=== PATIENT | male | born 1945 | race Caucasian/White ===

== ENCOUNTER 2017-08-03 01:35 | Observation (INO) | payer BC, OTHER ==
[~2017-08-03] VITALS: Ht 188 cm; Wt 76.1 kg
[2017-08-03] MEDS ORDERED: ASPIRIN 324 MG CHEW PO STA (01:59)
[2017-08-03 02:14] LABS: BASO % 0.2 %; BASO ABS # 0.01 K/uL (0-0.2); COMPLETE YES; EOS % 5.1 %; IG% 0.2 %; LYMPH ABS # 1.81 K/uL (1.2-3.4); MEAN CELL VOLUME 86.5 fL (80-100); MEAN CORPUSCULAR HEMOGLOBIN 29.8 pg (25-34); MEAN CORPUSCULAR HGB CONC 34.4 g/dl (32-36); MEAN PLATELET VOLUME 9.8 fL (7.4-10.4); MONO % 8.1 %; NEUT % 52.4 %; PLATELET COUNT 169 K/uL (130-400); RED BLOOD COUNT 4.16 M/uL (4.7-6.1); WHITE BLOOD COUNT 5.32 K/uL (4.8-10.8)
[2017-08-03 02:34] LABS: BUN/CREATININE RATIO 11.1 (10-20); CALCIUM 8.9 mg/dl (8.5-10.1); CREATININE 0.78 mg/dl (0.60-1.40)
[2017-08-03] MEDS ORDERED: ASPI81TA28 PO (02:35)
[2017-08-03] MEDS ORDERED: ATOR-24 PO (02:35)
[2017-08-03] MEDS ORDERED: MAGN200T6 PO (02:35)
[2017-08-03] MEDS ORDERED: METO25TA3 PO (02:35)
[2017-08-03] MEDS ORDERED: MULT-506 PO (02:35)
[2017-08-03 02:39] LABS: ALB/GLOB RATIO 1.3 (0.9-2); CKMB/CK RATIO 1.8 (0-3.0)
[2017-08-03] MEDS ORDERED: MoRPHine SULFATE 2 MG/ML CARP IV PRN (03:30)
[2017-08-03] MEDS ORDERED: ALUMINUM/MAGNESIUM/SIMETH (MAALOX MAX) 30 ML UDC PO PRN (03:30)
[2017-08-03] MEDS ORDERED: POLYETHYLENE (MIRALAX) 17 GM PACK PO PRN (03:30)
[2017-08-03] MEDS ORDERED: MAGNESIUM HYDROXIDE SUSP 30 ML UDC PO PRN (03:30)
[2017-08-03] MEDS ORDERED: ACETAMINOPHEN 325 MG TAB PO PRN (03:30)
[2017-08-03] MEDS ORDERED: ONDANSETRON INJ 2 MG/ML 2 ML VIAL IV PRN (03:30)
[2017-08-03] MEDS ORDERED: NITROGLYCERIN 0.4 MG SL PER TAB CHARGE SL PRN (03:30)
[2017-08-03 04:05] VITALS: BP 157/71; PULSE 53; TEMP 36.6; O2SAT 97; Ht 188 cm; Wt 76.1 kg
--- NOTE | 2017-08-03 04:17 | History and Physical ---
History & Physical Date of Service Aug 03, 2017. History & Physical Please see dictated report for full H&P HISTORY: 72 YO male from [place] with history of stable angina and RBBB, who presents with sudden onset chest pain, 5/10 pressure across the chest, no radiation, a/w diaphoresis. Did not get relief with nitro x 3 and Tums x 2. Came to ED after 30 minutes of pain. Pain resolved 1 hour from onset. Patient has hx of angina, with walking up hills. Usually resolves with 1 minute of rest, without nitro. Also has known history of RBBB. States normal nuclear stress test 1 year ago. Also had holter showing 10 minutes of Afib, but is not on anticoagulation. Never had cath or echo. 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 Takes ASA, Atorvastatin and Metoprolol. Metoprolol started 6 months ago and since then he has not had any angina until tonight. EXAM: VSS, no abnormalities on examination LABS/INVESTIGATIONS - CBC: normal WBC, Hb 12.9 (unknown baseline) - Lytes/Renal: Na 135, otherwise normal - TnI < 0.03 - EKG: RBBB, no acute ST or T wave changes - CXR: no gross abnormalities, final report pending ASSESSMENT/PLAN - Chest pain with hx angina: Cardiac enzymes q6h, telemetry monitoring, EKG in AM and with chest pain, Obtain old records, Cardiology consultation for recs on whether additional stress testing required. Echo can be ordered if trops come back positive - Continue ASA, Atorvastatin, Metoprolol - SCD, TEDs, Lovenox - Level I - Obs Telemetry
--- NOTE | 2017-08-03 04:30 | EMERGENCY ROOM VISIT NOTE ---
History First contact with patient: 01:49 Chief Complaint: CARDIAC ASSESSMENT Stated Complaint: CHEST PAIN, UNSTABLE ANGINA Nursing Triage Summary: c/o pain across chest since 0030 rated as a 5/10 with diaphoresis. pt took 3 nitro at home and now rates pain 1/10. hx angina. pt also reports that he has had a cold for past week with cough for 2 days with green sputum. History of Present Illness The patient is a 72 year old male who presents to the Emergency Room with complaints of chest pain. The patient states that he woke up approximately one hour ago and walked to the bathroom. He states that he developed pain across his chest consistent with previous episodes of angina. He states the pain was more severe than previous episodes of angina. He took 3 nitroglycerin without relief and decided to come here. The patient states that when his pain initially started, it was a 5/10 and was associated with some diaphoresis. His pain is improved and is a 1/10 at this time. He denies any radiation of the pain into his arm or jaw or associated shortness of breath. The patient does state that he has a history of angina diagnosed by his corporate paralegal several months ago. He states that typically when he exerts himself, he will develop some mild chest pain which resolves with rest. The patient is from [place] and has a corporate paralegal there. He has had a negative stress test in the past. He has not had a heart catheterization. He states he was started on a beta jacqui and a statin in April. He does report a history of a right bundle-branch block. He denies any history of CT. He is not a smoker. The patient does report he has had some chest congestion/cough for the past week. Review of Systems A complete 10 point review of systems was reviewed with the patient with pertinent positives and negatives as per history of present illness. All else were negative. Past Medical/Surgical History Medical Problems: (1) Chest pain (2) Unstable angina Social History Smoking Status: Never Smoker Current/Historical Medications Scheduled Aspirin (Aspirin Ec), 81 MG PO DAILY Atorvastatin (Lipitor), 40 MG PO DAILY Magnesium Citrate (mg Suppleme (Magnesium Citrate), 200 MG PO DAILY Metoprolol Succinate (Toprol Xl), 12.5 MG PO DAILY Multivitamin (Multivitamin), 1 TAB PO DAILY Physical Exam Vital Signs Date Time Temp Pulse Resp B/P (MAP) Pulse Ox O2 Delivery O2 Flow Rate FiO2 08/03/17 03:26 61 20 141/73 97 Room Air 08/03/17 02:20 55 12 122/66 98 Room Air 08/03/17 01:56 54 08/03/17 01:47 97 Room Air 08/03/17 01:39 36.5 55 18 142/70 97 Room Air Physical Exam VITALS: Vitals are noted on the nurse's note and reviewed by myself. Vital signs stable. GENERAL: This is a 72-year-old male, in no acute distress, nondiaphoretic, well- developed well-nourished. SKIN: Capillary reflex less than 2 seconds. HEENT: Normocephalic. PERRLA. Tympanic membranes pearly esquivel bilaterally. Mucous membranes moist. Neck is supple without nuchal rigidity. HEART: Regular rate and rhythm without murmurs gallops or rubs. LUNGS: Clear to auscultation bilaterally without wheezes, rales or rhonchi. No retractions or accessory muscle use. NEURO: Patient was alert and oriented to person place and time. Medical Decision & Procedures ER Provider Diagnostic Interpretation: CHEST: No consolidation. No cardiomegaly. Laboratory Results 08/03/17 01:55 Red Blood Count 4.16, Mean Corpuscular Volume 86.5, Mean Corpuscular Hemoglobin 29.8, Mean Corpuscular Hemoglobin Concent 34.4, Mean Platelet Volume 9.8, Neutrophils (%) (Auto) 52.4, Lymphocytes (%) (Auto) 34.0, Monocytes (%) (Auto) 8.1, Eosinophils (%) (Auto) 5.1, Basophils (%) (Auto) 0.2, Neutrophils # (Auto) 2.79, Lymphocytes # (Auto) 1.81, Monocytes # (Auto) 0.43, Eosinophils # (Auto) 0.27, Basophils # (Auto) 0.01 08/03/17 01:55 Test 08/03/17 01:55 08/03/17 02:06 White Blood Count 5.32 K/uL (4.8-10.8) Red Blood Count 4.16 M/uL (4.7-6.1) Hemoglobin 12.4 g/dL (14.0-18.0) Hematocrit 36.0 % (42-52) Mean Corpuscular Volume 86.5 fL (80-100) Mean Corpuscular Hemoglobin 29.8 pg (25-34) Mean Corpuscular Hemoglobin Concent 34.4 g/dl (32-36) Platelet Count 169 K/uL (130-400) Mean Platelet Volume 9.8 fL (7.4-10.4) Neutrophils (%) (Auto) 52.4 % Lymphocytes (%) (Auto) 34.0 % Monocytes (%) (Auto) 8.1 % Eosinophils (%) (Auto) 5.1 % Basophils (%) (Auto) 0.2 % Neutrophils # (Auto) 2.79 K/uL (1.4-6.5) Lymphocytes # (Auto) 1.81 K/uL (1.2-3.4) Monocytes # (Auto) 0.43 K/uL (0.11-0.59) Eosinophils # (Auto) 0.27 K/uL (0-0.5) Basophils # (Auto) 0.01 K/uL (0-0.2) RDW Standard Deviation 41.9 fL (36.4-46.3) RDW Coefficient of Variation 13.1 % (11.5-14.5) Immature Granulocyte % (Auto) 0.2 % Immature Granulocyte # (Auto) 0.01 K/uL (0.00-0.02) Anion Gap 8.0 mmol/L (3-11) Est Creatinine Clear Calc Drug Dose 94.6 ml/min Estimated GFR () 104.5 Estimated GFR (Non- 90.2 BUN/Creatinine Ratio 11.1 (10-20) Calcium Level 8.9 mg/dl (8.5-10.1) Total Bilirubin 0.3 mg/dl (0.2-1) Aspartate Amino Transf (AST/SGOT) 23 U/L (15-37) Alanine Aminotransferase (ALT/SGPT) 53 U/L (12-78) Alkaline Phosphatase 77 U/L (45-117) Total Creatine Kinase 78 U/L (39-308) Creatine Kinase MB 1.4 ng/ml (0.5-3.6) Creatine Kinase MB Ratio 1.8 (0-3.0) Total Protein 7.2 gm/dl (6.4-8.2) Albumin 4.0 gm/dl (3.4-5.0) Globulin 3.2 gm/dl (2.5-4.0) Albumin/Globulin Ratio 1.3 (0.9-2) Bedside Troponin I < 0.030 ng/ml (0-0.045) Medications Administered Medications (Trade) Dose Ordered Sig/Lucinda Route Start Time Stop Time Status Last Admin Dose Admin Aspirin (Aspirin Chew) 324 mg NOW STAT PO 08/03/17 01:59 08/03/17 02:00 DC 08/03/17 02:19 324 MG ECG Rate (beats per minute): 49 Rhythm: normal sinus Findings: RBBB Comparison ECG Date: no prior available ED Course The patient was evaluated as above. Labs were drawn and IV access was obtained. Patient was medicated with 324 mg ASA. Patient was reevaluated and findings were discussed. He is agreeable to admission/observation. Case was discussed with the [facility] hospitalist, Dr. Willis. They agreed to evaluate the patient for admission. Medical Decision Differential diagnosis includes acute coronary syndrome, pulmonary embolism, pneumothorax, pericarditis, myocarditis, endocarditis, anxiety, musculoskeletal pain, GERD, costochondritis, pneumonia, among others. The patient is a 72-year-old male who presents today complaining of chest pain. EKG shows a right bundle branch block which is known to the patient. There are no acute ischemic changes. Initial troponin was negative. Patient's history is concerning for unstable angina. He states that this episode was more severe than pain and has had in the past. This is the first time he had to take nitroglycerin for chest pain. I do feel that he will likely need observation/admission, at least to trend his troponin. The patient is agreeable to this. He will be evaluated by the [facility] hospitalist service. The patient was independently evaluated by Dr. Crawford, ED attending physician , who agreed with my assessment and treatment plan. Medication Reconcilliation Current Medication List: was personally reviewed by me Blood Pressure Screening Patient's blood pressure: Elevated blood pressure (will be followed by hospitalist) Impression Primary Impression: Unstable angina Departure Information Referrals No Doctor, Assigned (PCP) Patient Instructions My [facility]
--- NOTE | 2017-08-03 05:11 | HISTORY & PHYSICAL EXAMINATION ---
DATE OF ADMISSION: 08/03/2017 HISTORY OF PRESENT ILLNESS: Mr. Ben Hargrove is a pleasant 72-year-old gentleman with a past history of right bundle branch block and angina who presents to the Emergency Department after experiencing an episode of chest pain in the early hours of this morning. He states that he was sleeping and was awoken from his sleep with a 5/10 pressure type pain across his chest. The pain did not radiate to his jaw, back, or arms. He also notes that he was feeling diaphoretic at the time. He did take 3 back to back nitroglycerin sublingual tablets, but notes that this did not give him any relief. In addition, he took 2 Tums thinking it may be reflux, but this did not help. After persistence of symptoms for approximately 30 minutes, the patient's decided to come to the Emergency Room for further evaluation. The patient does state that he has a baseline of angina. States that he previously will get anginal episodes when walking uphill or walking his dog. The characteristics of his anginal pain are similar to the pain noted tonight when he came to the Emergency Room. However, back in March 2017, he was started on metoprolol and notes that since then he has had no episodes of angina up until tonight. With his usual episodes of angina, he states that he merely needs to rest for 1 minute and the pain dissipates on its own. He has never had to take nitroglycerin up until tonight. In addition to the chest pain, the patient states that he has had cold symptoms for the past approximately 1 week. He has had an intermittent dry to productive cough, and is occasionally bringing up mild green sputum. He is denying any shortness of breath, or wheezing. He denies any fevers, chills or sweats. His appetite and intake have been at baseline. Otherwise, he denies any other symptoms including nausea, vomiting, abdominal pain, diarrhea or constipation. He has been urinating normally. Denies any urinary frequency or dysuria. The patient denies any history of AK in the past. The patient has stated that he has previously been told that he has a right bundle branch block. The patient states that he had nuclear stress testing done by his supervisor electric in [place], [place] and this was apparently normal. He denies ever having had an echocardiogram. He did state that he had a Holter monitor done approximately 6 months ago which did show a cumulative 10 minutes of atrial fibrillation. However, he states that he was never put on any anticoagulation for this. He has never had a cardiac catheterization. On arrival to the Emergency Room, the patient did have an EKG which did not show any acute changes. It did show his known right bundle branch block. An initial troponin was done which was negative. A 10 point review of systems was otherwise negative unless stated above in the HPI PAST MEDICAL AND SURGICAL HISTORY: 1. Right bundle branch block. 2. Lung nodule. 3. History of retinal detachment. 4. Varicocele. 5. History of surgical hernia repair. 6. History of cataract repair. MEDICATIONS: Aspirin 81 mg p.o. daily, atorvastatin 40 mg p.o. daily, metoprolol succinate 12.5 mg p.o. daily, magnesium citrate 200 mg p.o. daily, multivitamin 1 tablet daily. ALLERGIES: AUGMENTIN (NAUSEA, VOMITING). SOCIAL HISTORY: The patient is a nonsmoker. The patient is a nondrinker. The patient lives at home with his in [place], [place]. The patient is a retired java lead engineer. The patient states that he is independent with all activities of daily living and does not require any additional assistance. FAMILY HISTORY: The patient states that his mother at 89 years old of congestive heart failure. He states his father has multiple health issues, but is not able to specifically list what they are. PHYSICAL EXAMINATION: VITAL SIGNS: Are as noted in the electronic medical records. On arrival, temperature 36.5, heart rate 55, respiration rate 18, blood pressure 142/70, 97% on room air. GENERAL: Inspection: The patient appears comfortable, not in any overt pain or distress, answers questions appropriately. NEUROLOGICAL: Alert and oriented x3, no obvious focal neurological deficits. HEAD: No trauma, normocephalic, no scalp lesions. EYES: Pupils are equal, round and reactive bilaterally, normal extraocular eye movements. ENT: TMs clear bilaterally, no sinus tenderness, pharynx normal, mucous membranes moist. NECK: Supple, no thyromegaly, no JVD, no cervical lymphadenopathy. RESPIRATORY/CHEST: Breath sounds are vesicular bilaterally with no wheezes or crackles, and no evidence of respiratory distress. CARDIOVASCULAR: S1 and S2 with no added sounds, murmurs or gallops. The patient has a bradycardic rate which is regular. ABDOMEN/GASTROINTESTINAL: Soft, nontender, and nondistended, bowel sounds are audible in all 4 quadrants, there is no flank pain, or CVA tenderness. BACK: No spinal or paraspinal tenderness. EXTREMITIES: No calf pain, no calf tenderness, no pitting edema. SKIN: There are no obvious rashes or skin lesions apparent on the patient. LABORATORY DATA AND INVESTIGATIONS: Hematology: White blood cell 5.3, hemoglobin 12.4, hematocrit 36, platelet 169. Electrolytes: Sodium 135, potassium 4.0, chloride 99, carbon dioxide 28, calcium 8.9. Renal: BUN 9, creatinine 0.78, GFR F90.2. Point of care troponin I less than 0.03. Chest x-ray: Chest x-ray was reviewed. There are no obvious radiographic abnormalities that I can appreciate. The final report is still pending. EKG: Normal sinus rhythm, ventricular rate of 49, right bundle branch block, no obvious ST or T-wave changes. ASSESSMENT: A 72-year-old male with a history of stable angina and known right bundle branch block who presents with sudden onset chest pain at rest. His problem list is as follows: 1. Chest pain. 2. History of stable angina. 3. History of right bundle branch block. PLAN: 1. With regards to his chest pain, we will trend his troponins every 6 hours x3. We will repeat an EKG in the morning. He will also have EKGs if he ever experiences chest pain. He will be monitored in telemetry. He will be given nitro sublingually p.r.n. for chest pain, and morphine if chest pain is refractory to this. The patient was given ASA 324 mg in the Emergency Room. We will continue with his usual 81 mg of aspirin daily, as well as his usual dosing of atorvastatin as well as metoprolol. 2. At this point, there is no indication to do an echocardiogram. If his troponins in fact do come back positive, this can be ordered. 3. I have placed an order to obtain old records. The patient states that he follows with Dr. Stephen Bean from [facility] in [place], [place]. The patient states that he may be able to access these records himself. 4. Cardiology will be consulted for recommendations on whether additional stress testing would be required. 5. For DVT prophylaxis, the patient will be given SCD, TEDs and Lovenox subcutaneously daily. 6. The patient states that he is a level 1 full code. His is the substitute decision maker if he could not make decisions for himself. 7. The patient will be observed in telemetry overnight pending serial cardiac enzyme monitoring. The patient is independent at home; therefore, I do not feel that occupational therapy or physical therapy consults are required. DIDI
[2017-08-03] MEDS ORDERED: IV FLUIDS COMPLETED PRN (05:15)
--- NOTE | 2017-08-03 06:38 | DIAGNOSTIC IMAGING REPORT ---
CHEST ONE VIEW PORTABLE HISTORY: 72 years-old Male chest pain acute atypical chest pain COMPARISON: None available TECHNIQUE: Portable upright AP view the chest FINDINGS: Cardiomediastinal and hilar silhouettes are within normal limits. There is atherosclerosis of the aorta. Mild biapical pleural-parenchymal scarring. Increased lucency of the lungs may reflect emphysema. No pneumothorax, pleural effusion, focal airspace consolidation or overt pulmonary edema. Ill-defined opacity of the left lung base is favored to reflect composite density artifact. Degenerative changes are seen within the shoulders and spine. IMPRESSION: No acute cardiopulmonary process. The above report was generated using voice recognition software. It may contain grammatical, syntax or spelling errors. Electronically signed by: Buck Self M.D. 08/03/2017 6:36 AM Dictated Date/Time: 08/03/2017 6:35 AM
[2017-08-03 07:49] LABS: PROTHROMBIN TIME (PATIENT) 10.3 SECONDS (9.0-12.0)
[2017-08-03 08:14] VITALS: BP 135/67; PULSE 56; TEMP 36.6; O2SAT 98
[2017-08-03] MEDS ORDERED: ENOXAPARIN 40 MG/0.4 ML SYR SC SCH (09:00)
[2017-08-03] MEDS: ATORVASTATIN 20 MG TAB PO SCH ×2 (09:00→09:03)
[2017-08-03] MEDS ORDERED: MULTIVITAMIN TAB PO SCH (09:00)
[2017-08-03] MEDS ORDERED: METOPROLOL SUCC 25MG EXT REL TAB PO SCH (09:00)
[2017-08-03] MEDS ORDERED: MAGNESIUM OXIDE 400 MG TAB PO SCH (09:00)
[2017-08-03] MEDS ORDERED: ASPIRIN 81 MG ECTAB PO SCH (09:00)
[2017-08-03 09:58] LABS: CKMB/CK RATIO 1.6 (0-3.0)
--- NOTE | 2017-08-03 11:12 | CARDIOLOGY CONSULTATION ---
DATE OF CONSULTATION: 08/03/2017 REASON FOR CONSULTATION: Chest pain. CONSULTATION REQUESTED BY: Dr. Dexter. HISTORY OF PRESENT ILLNESS: Mr. Hargrove is a very pleasant 72-year-old man with a history of reported stable angina, known right bundle branch block who presented last night in the setting of acute onset of chest pain. The patient has a history of stable angina diagnosed by his business office representative in [place]. He states he previously underwent a stress test back in January of 2016. On that test, he exercised for 8 minutes, had no significant EKG changes and had normal myocardial perfusion. He was having exertional chest pain and was started on beta jacqui with significant improvement in symptoms over the last 6 months. He has sublingual nitroglycerin at home but states he has never really had to take. He is in town visiting family and last night, woke up to use the restroom and then developed severe substernal chest pain with some associated diaphoresis. He took 3 sublingual nitroglycerins without significant benefit as a result presented to ED. Upon arrival, his pain had largely dissipated. His initial EKG showed right bundle branch block with no significant ST abnormalities and his point of care troponin was negative. Since admission, he has had no recurrent chest pain. Telemetry has been unremarkable. REVIEW OF SYSTEMS: The patient does endorse some URI symptoms with cough and nasal congestion over the last 1-2 weeks. PAST MEDICAL HISTORY: 1. Stable angina. 2. Lung nodule. 3. History of prior retinal detachment. 4. Chronic right bundle branch block. PAST SURGICAL HISTORY: History of surgical hernia repair and cataract repair. HOME MEDICATIONS: Aspirin 81, atorvastatin 40, metoprolol succinate 12.5 daily, magnesium citrate p.r.n. and multivitamin. ALLERGIES: ALLERGIC TO AUGMENTIN. SOCIAL HISTORY: The patient is a lifelong nonsmoker. He lives in [place], [place] with his . He is a retired hvac design mechanical engineer. FAMILY HISTORY: Mother with congestive heart failure. Denies any history of premature coronary disease. His father is still living at [facility]. PHYSICAL EXAMINATION: VITAL SIGNS: Temperature 36.6, pulse 50, blood pressure 135/67. He is satting 98% on room air. GENERAL: The patient appears comfortable in no acute distress. HEENT: Sclerae are anicteric. Oropharynx is clear. Mucous membranes are moist. NECK: Supple. No lymphadenopathy. LUNGS: Clear to auscultation bilaterally. HEART: Regular rate and rhythm with no murmurs, rubs or gallops. ABDOMEN: Soft, nontender, nondistended with positive bowel sounds. EXTREMITIES: Warm. He has no significant lower extremity edema. He has intact distal pulses including 2+ radial pulses bilaterally. SKIN: Shows no rashes or lesions. NEUROLOGIC: Nonfocal. PSYCHIATRIC: He is alert and appropriate. LABORATORY DATA: Hemoglobin of 12.4, platelets of 169. Sodium 135, potassium of 4.0, BUN of 9, creatinine of 0.8. LFTs within normal limits. Two troponins have been negative, less than 0.015. EKG: Initial EKG shows sinus rhythm at a ventricular rate of 49. He has a right bundle branch block with no significant ST abnormalities. IMAGING DATA: Chest x-ray showed no acute cardiopulmonary process. IMPRESSION AND PLAN: 1. Chest pain. 2. History of presumed coronary artery disease, stable angina. 3. Right bundle branch block. 4. Anemia. Mr. Hargrove is here with acute episode of chest pain last night. This is reminiscent of his prior pain for which he has been treated for presumed coronary artery disease with stable angina. His initial EKG and troponins have been unremarkable. Going forward suspicion for possible ACS event is elevated, although presentation at this time is low risk. In that setting, favor further risk stratification with exercise stress echocardiogram which we plan to complete later this afternoon. If that study is normal, I feel the patient can be safely discharged to home with further followup with his outpatient business office representative in [place]. Otherwise, no significant changes to his medications at this time. Thank you for allowing us to participate in the care of this patient. Please contact with any questions. DIDI
[2017-08-03 11:51] VITALS: BP 136/72; PULSE 59; TEMP 37; O2SAT 99
[2017-08-03] MEDS ORDERED: PERFLUTREN LIPID MICROSPHERE (DEFINITY) IV ONE (12:10)
--- NOTE | 2017-08-03 12:59 | Discharge Instructions ---
Discharge Instructions Date of Service Aug 03, 2017. Admission Reason for Admission: Chest Pain, Unstable Angina Discharge Discharge Diagnosis / Problem: Chest Pain Discharge Goals Goal(s): Decrease discomfort, Improve function, Improve disease control Activity Recommendations Activity Limitations: resume your previous activity . Instructions / Follow-Up Instructions / Follow-Up You came to [facility] due to an episode of chest pain that occurred the middle of the night, when you were not exerting yourself. We checked an EKG (electrical tracing of your heart), troponin (enzyme in your blood that measures damage to your heart muscle) and a chest xray, and they all came back normal. You were also seen by Dr. Carney from cardiology and underwent a stress test, which you passed with flying colors! Given the absence of findings on our clinical workup , your chest pain at this time was likely not a heart attack, and we feel it is safe for you to be discharged and follow up with your regular stadium manager. Of note, your EKG shows that your heart rate is on the slower side, and that you have some changes that could potentially in the future predispose you to something called heart block, where the electrical current does not conduct fully through the muscle of your heart. If you ever faint unexpectedly, feel dizzy or lightheaded, please seek medical attention, as this could be due to abnormal conduction within your heart. Otherwise, continue with your regular home medications and please follow up with your primary care provider and stadium manager, given that you do have underlying heart disease and we would like for you to be monitored closely as we are unsure as to what exactly caused this pain. Return to the ER immediately for worsening or persistent chest pain, abdominal pain, vomiting, fevers, chest pains, or difficulty breathing. Current Hospital Diet Patient's current hospital diet: Discharge Diet Recommended Diet: AHA Diet (Heart Healthy) Pending Studies Studies pending at discharge: no Medical Emergencies . Who to Call and When: Medical Emergencies: If at any time you feel your situation is an emergency, please call 911 immediately. . Non-Emergent Contact Non-Emergency issues call your: Primary Care Provider . . "Provider Documentation" section prepared by Sarwat Hill. . VTE Core Measure Inpt VTE Proph given/why not?: Enoxaparin (Lovenox)SQ
--- NOTE | 2017-08-03 13:03 | Discharge Summary ---
Discharge Summary Date of Service Aug 03, 2017. (Sarwat Hill M.D.) Discharge Summary Admission Date: Aug 03, 2017 at 03:26 Discharge Date: Aug 03, 2017 Discharge Disposition: Home Principal Diagnosis: Chest pain Problems/Secondary Diagnoses: 1) RBBB 2) Stable Angina 3) CAD Consultations: Cardiology - Dr. Carney (Sarwat Hill M.D.) Medication Reconciliation Continued Medications: Aspirin (Aspirin Ec) 81 Mg Tab 81 MG PO DAILY Atorvastatin (Lipitor) 40 Mg Tab 40 MG PO DAILY, TAB Magnesium Citrate (mg Suppleme (Magnesium Citrate) 200 Mg Tab 200 MG PO DAILY Metoprolol Succinate (Toprol Xl) 25 Mg Tabcr 12.5 MG PO DAILY, #30 TAB Multivitamin (Multivitamin) Tab 1 TAB PO DAILY, TAB Discharge Exam Mr. Hargrove reports he feels well today. He denies any further episodes of chest pain after he came into the emergency department, and denies SOB, palpitations, n/v, and diaphoresis. He does state he has been unwell the past few days, with a sore throat, cough productive of green sputum (no blood), and generally feeling unwell. Review of Systems: Constitutional: No fever, No chills, No sweats Respiratory: + cough, + sputum, No wheezing, No shortness of breath Cardiovascular: No chest pain, No orthopnea, No PND, No edema Abdomen: No pain, No nausea, No vomiting Physical Exam: General Appearance: WD/WN, no apparent distress Neck: no JVD Respiratory/Chest: chest non-tender, lungs clear, normal breath sounds, no respiratory distress, no accessory muscle use Cardiovascular: regular rate, rhythm, no edema, no gallop, no JVD, no murmur , normal peripheral pulses Abdomen / GI: normal bowel sounds, non tender, soft, no organomegaly, no pulsatile mass Extremities: no calf tenderness, normal capillary refill, no pedal edema (Sarwat Hill M.D.) Hospital Course Mr. Hargrove is a 72 year old gentleman with a background history of stable angina and a RBBB who was admitted to [facility] as a chest pain rule out. His EKG, troponin and CXR were negative. He was seen by Dr. Carney from cardiology and underwent a stress test, which he passed. Given the absence of findings on labwork, we will be discharging him and recommending close follow up with his PCP and hourly sign language interpreter given an exact cause was not determined for his chest pain. As well, his EKG shows findings that could be concerning for a left anterior hemiblock. We counselled him on watching out for symptoms of heart block, and recommend he seek medical attention if any of those symptoms occur. Total Time Spent: Less than 30 minutes This includes examination of the patient, discharge planning, medication reconciliation, and communication with other providers. (Sarwat Hill M.D.) Resident Physician Supervision Note: I interviewed and examined the patient. Discussed with Dr. Hill and agree with findings and plan as documented in the note. Any exceptions or clarifications are listed here: None Documented By: Ulises Dexter seen during echo portion of stress test. conferred w cardiology - input appreciated. vitals noted nad breathing unlabored no pallor or icterus stress was negative for ischemia chest pain - cardiac enzymes negative despite presumably ~1.5hrs chest pain, stress echo negative. suspect noncardiac given the low level of exertion at which he experiences these sx in the face of negative testing stable for home - f/u PCP and primary hourly sign language interpreter (Ulises Dexter, D.O.) Discharge Instructions Please refer to the electronic Patient Visit Report (Discharge Instructions) for additional information. (Sarwat Hill M.D.)
[2017-08-03 13:59] VITALS: BP 136/72; PULSE 59; TEMP 37; O2SAT 99
--- NOTE | 2017-08-03 16:42 | EXERCISE STRESS ECHO ---
*NOTICE TO RECEIVING LIBERTARIAN AGENCY This information is strictly Confidential and protected under [place] law. [place] law prohibits you from making any further disclosure of this information unless further disclosure is expressly permitted by the written consent of the person to whom it pertains or is authorized by law. A general authorization for the release of medical or other information is not sufficient for this purpose. Hospital accepts no responsibility if the information is made available to any other person, INCLUDING THE PATIENT. Interpretation Summary * Name: RENAE HALL Study Date: 08/03/2017 10:51 AM BP: 142/72 mmHg * Patient Location: C.2T\S\S230\S\2 HR: 49 * : 1945 (M/d/yyyy) Gender: Male Height: 74 in * Age: 72 yrs Ethnicity: CA Weight: 167 lb * Ordering Physician: Anand Carney * Referring Physician: Self, Referred * Performed By: Rubina Dickey RDCS * * Reason For Study: CHEST PAIN * BSA: 2.0 m2 * -- Conclusions -- * 1. Non-diagnostic exercise stress echo due to inability to reach target heart rate. * 2. Normal echocardiographic response to exercise at 78% MPHR. * 3. Negative stress ECG for ischemia at 78% MPHR. * 4. Above average functional capacity. Exercised 7:20 min, achieved 9.0 METS. * 5. Exercise induced back pain but no joaquin chest pain. Normal hemodynamic response to exercise. * 6. Normal resting LV size and function. LVEF 55-60%. Normal RV size and funciton. No significant valvular pathology. Procedure Details * ECHOEX, CPT #99115 * A contrast injection of Definity was performed to improve assessment of LV function. * Contrast was injected into an intravenous site in the right arm. * One vial of Definity ultrasound contrast was diluted in normal saline to a total volume of 10 ml. A total of '4' ml of solution was administered during imaging. * Lot # [id number] of Definity utilized for procedure. * Expiration date AUG 24. * The attending nurse who injected the contrast agent was DURAN NG RN. Left Ventricular Findings with Stress * This was essentially a normal study. Left Ventricle * The left ventricle is grossly normal size. * There is normal left ventricular wall thickness. * Ejection Fraction = 55-60%. * The left ventricular ejection fraction increases normally with stress. The left ventricular end-systolic cavity size reduces post-stress (normal response). The left ventricular wall motion with stress is normal. * Septal motion is consistent with conduction abnormality. Right Ventricle * The right ventricle is grossly normal size. * The right ventricular systolic function is normal as assessed by tricuspid annular plane systolic excursion (TAPSE) (normal >1.5 cm). Atria * The left atrial size is normal. * Right atrial size is normal. * No ASD detected; PFO is not assessed. Mitral Valve * The mitral valve is grossly normal. * Mitral stenosis is absent. * There is trace mitral regurgitation. Tricuspid Valve * There is trace tricuspid regurgitation. Aortic Valve * The aortic valve opens well. * The aortic valve is trileaflet. * No hemodynamically significant valvular aortic stenosis. Pulmonic Valve * The pulmonary valve is inadequately visualized, but the Doppler data is adequate for interpretation. * There is no significant pulmonary regurgitation. Great Vessels * The aortic root and proximal ascending aorta are normal sized. Pericardium * There is no pericardial effusion. Stress Parameters * Sinus bradycardia with RBBB * Stress ECG: No ST changes. No arrhythmias. * Arrhythmia noted in recovery: occasional PVC's. * Rest heart rate was '49' BPM. * Rest blood pressure was '142/72' * Maximum heart rate achieved was 116 bpm. * Maximum heart rate was 78 % of maximum age-predicted heart rate. * Maximum blood pressure was '175/66' * Total exercise time was '7:20' * Maximum exercise MET level achieved was '9.00' METS * Maximum treadmill speed was '3.40' miles per hour. * Maximum treadmill elevation was '14.00'% grade. * Exercise was terminated due to 'FATIGUE, CHEST/BACK PAIN' Left Ventricular Findings with Stress * The study was technically good with many images being of high quality. MMode 2D Measurements and Calculations IVSd 1.1 cm IVSs 1.7 cm LVIDd 4.9 cm LVIDs 3.5 cm LVPWd 0.92 cm LVPWs 1.4 cm IVS/LVPW 1.1 FS 28.2 % EDV(Teich) 112.4 ml ESV(Teich) 51.4 ml EF(Teich) 54.3 % EDV(cubed) 117.1 ml ESV(cubed) 43.4 ml EF(cubed) 62.9 % % IVS thick 59.0 % % LVPW thick 51.8 % LV mass(C)d 172.5 grams LV mass(C)dI 85.7 grams/m\S\2 LV mass(C)s 202.2 grams LV mass(C)sI 100.5 grams/m\S\2 SV(Teich) 61.0 ml SI(Teich) 30.3 ml/m\S\2 SV(cubed) 73.7 ml SI(cubed) 36.6 ml/m\S\2 Ao root diam 3.9 cm Ao root area 12.1 cm\S\2 LA dimension 3.6 cm LA/Ao 0.93 LVAd ap4 36.5 cm\S\2 LVLd ap4 9.2 cm EDV(MOD-sp4) 120.1 ml EDV(sp4-el) 122.9 ml LVAs ap4 21.5 cm\S\2 LVLs ap4 8.0 cm ESV(MOD-sp4) 49.9 ml ESV(sp4-el) 49.3 ml EF(MOD-sp4) 58.4 % EF(sp4-el) 59.9 % LVAd ap2 30.8 cm\S\2 LVLd ap2 9.1 cm EDV(MOD-sp2) 91.2 ml EDV(sp2-el) 88.5 ml LVAs ap2 18.7 cm\S\2 LVLs ap2 8.0 cm ESV(MOD-sp2) 38.2 ml ESV(sp2-el) 37.2 ml EF(MOD-sp2) 58.1 % EF(sp2-el) 58.0 % LVLd %diff -0.80 % EDV(MOD-bp) 104.7 ml LVLs %diff -0.21 % ESV(MOD-bp) 43.6 ml EF(MOD-bp) 58.3 % SV(MOD-sp4) 70.2 ml SI(MOD-sp4) 34.9 ml/m\S\2 SV(MOD-sp2) 53.0 ml SI(MOD-sp2) 26.3 ml/m\S\2 SV(MOD-bp) 61.1 ml SI(MOD-bp) 30.3 ml/m\S\2 SV(sp4-el) 73.6 ml SI(sp4-el) 36.6 ml/m\S\2 SV(sp2-el) 51.3 ml SI(sp2-el) 25.5 ml/m\S\2 Doppler Measurements and Calculations MV E max beny 58.6 cm/sec MV A max beny 40.8 cm/sec MV E/A 1.4 MV dec time 0.40 sec Ao V2 max 120.5 cm/sec Ao max PG 5.8 mmHg Ao max PG (full) 2.7 mmHg LV V1 max PG 3.1 mmHg LV V1 max 87.8 cm/sec
--- NOTE | 2017-08-03 20:06 | Medical Student: [facility] ---
Med Student Progress Note Date of Service Aug 03, 2017. Subjective Pt evaluation today including: conversation w/ patient, physical exam Pain: None Voiding: no voiding problems Mr. Hargrove is a 72-year-old man with a history of RBBB and angina who presented to the ED with chest pain. He says this all began when he woke in the middle of the night to use the restroom. He describes the pain as a non-radiating chest "ache and discomfort" with associated shortness of breath and diaphoresis. He took 3 nitroglycerin tablets without relief of symptoms which prompted him to come to the ED. Upon arrival he chewed 4 aspirin. His pain resolved here at [facility] , and he believes the total duration of the pain was about an hour. In addition to the above complaint, pt also notes a one week history of cough productive of clear sputum, sore throat, and nasal congestion without fevers or chills. Currently patient says that original pain that brought him to the ED is now gone , but he does have a small dull ache in his chest still. Review of Systems Constitutional: No fever, No chills ENT: + nasal symptoms (congestion) Respiratory: + cough, + sputum (clear) Cardiac: + problem reported (chest "ache"), No edema Abdomen: No pain, No nausea, No vomiting, No diarrhea, No constipation Musculoskeletal: No calf pain Male : No dysuria, No problem reported Heme: No abnormal bleeding/bruising Objective Vital Signs Date Time Temp Pulse Resp B/P (MAP) Pulse Ox O2 Delivery O2 Flow Rate FiO2 08/03/17 13:59 37.0 59 18 99 Room Air 08/03/17 12:00 Room Air 08/03/17 11:51 37.0 59 18 136/72 (93) 99 08/03/17 08:14 36.6 56 18 135/67 (89) 98 08/03/17 08:00 Room Air 08/03/17 04:05 36.6 53 18 157/71 97 Room Air 08/03/17 03:26 61 20 141/73 97 Room Air 08/03/17 02:20 55 12 122/66 98 Room Air 08/03/17 01:56 54 08/03/17 01:47 97 Room Air 08/03/17 01:39 36.5 55 18 142/70 97 Room Air Physical Exam General Appearance: WD/WN, no apparent distress Eyes: bilateral eyes PERRL Respiratory/Chest: lungs clear, normal breath sounds, no respiratory distress Cardiovascular: regular rate, rhythm, no edema, no gallop, + systolic murmur ( soft; radiates throughout precordium) Abdomen: normal bowel sounds, non tender, soft Extremities: non-tender, normal inspection, no pedal edema, no calf tenderness Neurologic/Psychiatric: normal mood/affect Laboratory Results Last 24 Hours Test 08/03/17 01:55 08/03/17 02:06 08/03/17 06:47 08/03/17 09:24 White Blood Count 5.32 K/uL Red Blood Count 4.16 M/uL Hemoglobin 12.4 g/dL Hematocrit 36.0 % Mean Corpuscular Volume 86.5 fL Mean Corpuscular Hemoglobin 29.8 pg Mean Corpuscular Hemoglobin Concent 34.4 g/dl Platelet Count 169 K/uL Mean Platelet Volume 9.8 fL Neutrophils (%) (Auto) 52.4 % Lymphocytes (%) (Auto) 34.0 % Monocytes (%) (Auto) 8.1 % Eosinophils (%) (Auto) 5.1 % Basophils (%) (Auto) 0.2 % Neutrophils # (Auto) 2.79 K/uL Lymphocytes # (Auto) 1.81 K/uL Monocytes # (Auto) 0.43 K/uL Eosinophils # (Auto) 0.27 K/uL Basophils # (Auto) 0.01 K/uL RDW Standard Deviation 41.9 fL RDW Coefficient of Variation 13.1 % Immature Granulocyte % (Auto) 0.2 % Immature Granulocyte # (Auto) 0.01 K/uL Sodium Level 135 mmol/L Potassium Level 4.0 mmol/L Chloride Level 99 mmol/L Carbon Dioxide Level 28 mmol/L Anion Gap 8.0 mmol/L Blood Urea Nitrogen 9 mg/dl Creatinine 0.78 mg/dl Est Creatinine Clear Calc Drug Dose 94.6 ml/min Estimated GFR () 104.5 Estimated GFR (Non- 90.2 BUN/Creatinine Ratio 11.1 Random Glucose 101 mg/dl Calcium Level 8.9 mg/dl Total Bilirubin 0.3 mg/dl Aspartate Amino Transf (AST/SGOT) 23 U/L Alanine Aminotransferase (ALT/SGPT) 53 U/L Alkaline Phosphatase 77 U/L Total Creatine Kinase 78 U/L 67 U/L Creatine Kinase MB 1.4 ng/ml 1.1 ng/ml Creatine Kinase MB Ratio 1.8 1.6 Total Protein 7.2 gm/dl Albumin 4.0 gm/dl Globulin 3.2 gm/dl Albumin/Globulin Ratio 1.3 Bedside Troponin I < 0.030 ng/ml Prothrombin Time 10.3 SECONDS Prothromb Time International Ratio 1.0 Troponin I < 0.015 ng/ml Assessment and Plan Assessment and Plan: Mr. Hargrove is a 72-year-old man with a history of angina and RBBB who presents with chest pain, shortness of breath, and diaphoresis. Pt says he is currently comfortable and would like to go home. CHEST PAIN - EKG on admission and this AM both do not show signs of ischemic change. - Cardiac biomarkers including Troponin, CK, and CK-MB are not elevated which would be expected with anginal chest pain lasting an hour. - Because patient had symptoms at rest that could not be relieved with negative EKG and biomarker findings of ischemia, he could be experiencing unstable angina. - In light of above findings, pt will undergo a stress test. We will also consult cardiology for additional guidance. We will continue his home medications including aspirin, atorvastatin, and metoprolol. - If chest pain is not of cardiac origin, other etiologies can be entertained. He denies calf tenderness/swelling/edema, pleuritic pain, and SOB currently. He has not been hypoxic or tachypnic. CXR in the ED was within normal limits. These findings make pulmonary embolism less likely. CXR also did not show any lobar opacity or interstitial change consistent with pneumonia. No pneumothorax seen. - Patient denies pain as a burning sensation, but another possibility could be GERD. However, this would be more appropriately investigated in the outpatient setting. DVT PROPHYLAXIS - Start Levenox 40mg and KENA stockings. - Encourage pt to ambulate as tolerated.
== END 2017-08-03 14:15 | disposition home or self-care (01) ==
LOC: C.EDB 01:37 → C.2T 03:26 → ENRESERV 03:31
PROVIDERS: ADMIT Student in an Organized Health Care Education/Training Program; ATTEND Family Medicine
DX: R07.9 Chest pain, unspecified (principal); I45.10 Unspecified right bundle-branch block; I25.110 Atherosclerotic heart disease of native coronary artery with unstable angina pectoris; Z98.890 Other specified postprocedural states; Z79.82 Long term (current) use of aspirin; Z79.899 Other long term (current) drug therapy; Z82.49 Family history of ischemic heart disease and other diseases of the circulatory system